=== PATIENT | female | born 1975 | race Caucasian/White ===

== ENCOUNTER 2016-08-20 19:28 | Inpatient (IN) | payer OTHER ==
[2016-08-20] MEDS ORDERED: THIAMINE HCL 100 MG, MVI, ADULT NO.1 WITH VIT K 10 ML, FOLIC ACID 5 MG in 0.9 % SODIUM ... IV SCH ×4 (20:00)
[2016-08-20] MEDS ORDERED: ONDANSETRON HCL/PF 4 MG/ 2ML VIAL IVP ONE (20:00)
[2016-08-20] MEDS ORDERED: DIAZEPAM 5 MG/ML DISP.SYRIN IVP ONE ×2 (20:00→22:03)
[2016-08-20] MEDS ORDERED: CloNIDine HCL 0.1 MG TABLET PO ONE (20:00)
[2016-08-20] MEDS ORDERED: ONDANSETRON HCL/PF 4 MG/ 2ML VIAL ONE (20:04)
[2016-08-20] MEDS ORDERED: 0.9 % SODIUM CHLORIDE 1,000 ML IV ONE (20:04)
[2016-08-20] MEDS ORDERED: MVI, ADULT NO.1 WITH VIT K 10 ML VIAL IV ONE (20:05)
[2016-08-20] MEDS ORDERED: THIAMINE HCL 100 MG/ML 2ML VIAL ONE (20:05)
[2016-08-20] MEDS ORDERED: FOLIC ACID 5 MG/1 ML ONE (20:05)
[2016-08-20 20:48] LABS: eGFR (African) > 60; eGFR (Non-African) > 60
[2016-08-20 20:54] LABS: BASOPHILS % 0.6 (0.0-1.5); EOSINOPHILS % 1.6 % (0.0-6.8); MEAN CORPUSCULAR HEMOGLOBIN 32.5 pg (28.0-34.0); MEAN CORPUSCULAR VOLUME 96.9 fl (80.0-100.0); NEUTROPHILS # 3.2 # k/uL (1.4-7.7)
[2016-08-21] MEDS ORDERED: DIAZEPAM 5 MG/ML DISP.SYRIN IVP ONE (00:37)
--- NOTE | 2016-08-21 00:52 | Diagnostic Imaging Report ---
JOSE PORTER~ [facility] [address] [facility] [address] [place], [place]. [address] ~ ~ ~ ~ Report Submission Date: August 20, 2016 9:18:26 PM CDT Patient ~ Study Name: ISH BORREGO ~ Date: August 20, 2016 8:37:16 PM CDT ~ Modality Type: CT\SR Gender: F ~ Description: CT ABD & PELVIS W/O CO : 73 ~ Institution: [facility] Physician: JOSE PORTER ~ ~ ~ ~ Computed tomography of the abdomen and pelvis without contrast History: Alcohol abuse and vomiting Findings: Transverse abdomen and pelvis sections are obtained without contrast revealing marked hepatic steatosis, normal caliber gallbladder, and normal size spleen. The pancreas, adrenals, kidneys, great vessels, and mesenteric structures are unremarkable. Bowel loops exhibit normal caliber and wall thickness including a normal appendix. Pelvic sections reveal a lobulated right uterine fundus and normal sized ovaries. Pelvic bowel loops and urinary bladder are unremarkable. Impression: 1. Marked hepatic steatosis. 2. Normal appendix. 3. Probably right uterine fundal fibroid. 4. No acute inflammatory or obstructive process. ~ Electronically signed on August 20, 2016 9:18:26 PM CDT by: Sivakumar CALVO
--- NOTE | 2016-08-21 00:55 | Diagnostic Imaging Report ---
JOSE PORTER~ [facility] [address] [address] ~ ~ ~ ~ Report Submission Date: August 20, 2016 9:19:08 PM CDT Patient ~ Study Name: ISH BORREGO ~ Date: August 20, 2016 8:44:00 PM CDT ~ Modality Type: CR Gender: F ~ Description: CHEST : 73 ~ Institution: [facility] Physician: JOSE PORTER ~ ~ ~ ~ AP chest History: Alcohol abuse and vomiting Findings: The lungs are clear. No pleural effusions are observed. Heart size and pulmonary vascularity are normal. Osseous structures are unremarkable. Impression: Normal. ~ Electronically signed on August 20, 2016 9:19:08 PM CDT by: Sivakumar CALVO
[2016-08-21] MEDS ORDERED: 0.9 % SODIUM CHLORIDE 1,000 ML IV SCH (01:00)
[2016-08-21] MEDS ORDERED: ONDANSETRON HCL/PF 4 MG/ 2ML VIAL IVP PRN (03:20)
[2016-08-21] MEDS: 0.9 % SODIUM CHLORIDE 1,000 ML IV SCH ×2 (03:28→17:15)
--- NOTE | 2016-08-21 03:45 | ED Physician Documentation ---
General Adult - HISTORIAN Historian: patient - HPI Stated Complaint: etoh withdraw Chief Complaint: General Adult Additional Information: Pt. is alcoholic, drinks 10-15 glasses of wine daily and 1 pint of vodka every other day for years Onset: days ago (1) Timing: worse Severity: moderate Modifying Factors: many year alcoholic, stopped drinking yesterday Context: was [facility] [employer] [facility] [facility] since yesterday Quality: significant tremors Location: generalized Further Comments: yes (elevated pulse and blood pressure) Last known Well Date: 08/19/16 (last drink of ETOH) Last Known Well Time: 03:30 (last drink of ETOH) - ROS CONST: denies: fever, sweating, recent illness, chills EYES/ENT: none CVS/RESP: none GI/: nausea. 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, etoh abuse) Other History: pancreatitis Surgeries/Procedures: BTL Immunizations: referred to PCP Allergies/Adverse Reactions: Allergies Allergy/AdvReac Type Severity Reaction Status Date / Time No Known Allergies Allergy Verified 08/20/16 19:44 Home Medications: Ambulatory Orders Medication Instructions Recorded Thiamine HCl [Vitamin B-1] 100 mg IJ QDAY 08/20/16 - SOCIAL HX Smoking History: cigarettes Alcohol Use: heavy Drug Use: none - FAMILY HX Family History: Yes (htn) - VITAL SIGNS Vital Signs: Vital Signs Temp Pulse Resp BP Pulse Ox 98.5 F 93 H 20 160/90 97 08/20/16 19:35 08/20/16 20:30 08/20/16 19:35 08/20/16 19:35 08/20/16 20:30 - REVIEWED ASSESSMENTS Nursing Assessment Reviewed: Yes Vitals Reviewed: Yes Progress - Results/Orders Results/Orders: cbc, cmp, ua, etoh, uds, ct abdomen/pelvis w/o contrast, ekg ordered - Progress Progress: pt. given banana bag in er, 3 doses of 5 mg valium ivp, 0.1 mg clonidine p.o., zofran 8 mg ivp in er with improved vitals and symptoms Critical Care Note - Critical Care Note Total Time (mins): 0 ED Results Lab/Radiology - Lab Results Lab Results: see labs. slight elevation of liver enzymes, otherwise unremakable - Radiology Radiology Impressions: ct abdomen shows hepatic steatosis, no ascites, cxr clear - Orders Orders: ED Orders Category Date Time Status Continuous EKG monitoring Q1H Care 08/20/16 20:18 Active Continuous Pulse Oximetry Q1H Care 08/20/16 20:18 Active Saline Lock [Remove IV/Saline Lock] 1T Care 08/20/16 19:49 Active CHEST 1 VIEW [RAD] Routine Exams 08/20/[address] ABD & PELVIS W/O CON Stat Exams 08/20/16 Ordered AMYLASE Routine Lab 08/20/16 20:30 Received CBC/PLATELET/DIFF Routine Lab 08/20/16 20:30 Received CMP Routine Lab 08/20/16 20:30 Received DRUG SCREEN URINE MEDICAL ONLY Routine Lab 08/20/16 Ordered ETHANOL MEDICAL USE ONLY Routine Lab 08/20/16 20:30 Received URINALYSIS Routine Lab 08/20/16 20:06 Ordered 0.9 % Sodium Chloride [Normal Saline] 1,000 ml Med 08/20/16 20:04 Discontinued IV .STK-MED CloNIDine HCL [Catapress] Med 08/20/16 20:00 Discontinued 0.1 mg PO NOW ONE Diazepam [Valium] Med 08/20/16 20:00 Discontinued 5 mg IVP NOW ONE Folic Acid [Folvite] Med 08/20/16 20:05 Discontinued 5 mg .ROUTE .STK-MED ONE Mvi, Adult No.1 with Vit K [M.v.i. Adult] Med 08/20/16 20:05 Discontinued 10 ml IV .STK-MED ONE Ondansetron HCl/Pf [Zofran 4 mg/2 ml] Med 08/20/16 20:04 Discontinued 8 mg .ROUTE .STK-MED ONE Ondansetron HCl/Pf [Zofran 4 mg/2 ml] Med 08/20/16 20:00 Discontinued 8 mg IVP NOW ONE Thiamine HCl Med 08/20/16 20:05 Discontinued 200 mg .ROUTE .STK-MED ONE Thiamine HCl 100 mg Med 08/20/16 20:00 Ordered Mvi, Adult No.1 with Vit K [M.v.i. Adult] 10 ml Folic Acid [Folvite] 5 mg 0.9 % Sodium Chloride [Normal Saline] 1,000 ml IV 1T EKG WITH COMPARISON Routine Ther 08/20/16 Ordered General Adult Physical Exam - PHYSICAL EXAM GENERAL APPEARANCE: moderate distress EENT: eye inspection normal, ENT inspection normal, pharynx normal, no nystagmus NECK: normal inspection, thyroid normal, supple RESPIRATORY: no resp distress, chest non-tender, breath sounds normal CVS: reg rate & rhythm, heart sounds normal, equal pulses, no murmur, no gallop , PMI nml, no JVD, tachycardia ABDOMEN: soft, no organomegaly, normal bowel sounds, non-tender. No: mass, guarding BACK: normal inspection, no CVA tenderness SKIN: warm/dry, normal color EXTREMITIES: non-tender, normal range of motion, no evidence of injury, no edema NEURO: oriented X3, CN's nml as tested, sensation nml, other (generalized tremor , anxiety) Discharge Clincal Impression: Delirium tremens Home Medications: Ambulatory Orders Thiamine HCl [Vitamin B-1] 100 mg IJ QDAY 08/20/16 Comments: Case discussed with Dr. Deshpande. Accepts admission. Condition: Stable Disposition: ADMITTED INPATIENT Decision to Admit: NO Decision Time: 01:30
[2016-08-21 03:54] VITALS: BMI 26.6
[2016-08-21] MEDS: DIAZEPAM 5 MG/ML DISP.SYRIN IVP SCH ×2 (04:15→06:41)
[2016-08-21 05:51] LABS: APPEARANCE,URINE CLOUDY (CLEAR); COLOR,URINE BROWN (YELLOW); OCCULT BLOOD,URINE 2+ (NEGATIVE)
[2016-08-21] MEDS ORDERED: CloNIDine HCL 0.1 MG TABLET PO SCH (09:00)
[2016-08-21] MEDS ORDERED: LORazepam 1 MG TABLET PO ONE ×3 (09:06→18:34)
[2016-08-21] MEDS: LORazepam 1 MG TABLET PO PRN ×3 (09:09→18:44)
[2016-08-21] MEDS ORDERED: CloNIDine HCL 0.1 MG TABLET PO ONE (13:47)
[2016-08-21 19:18] VITALS: BP 140/88
== END 2016-08-21 19:10 | disposition home or self-care (01) | DRG 392 ==
LOC: ED 19:28 → SOUTH 08-21 02:58
PROVIDERS: ADMIT Emergency Medicine; ATTEND Family Medicine
DX: R11.2 Nausea with vomiting, unspecified (principal)
CPT/HCPCS: 71010; 74176; 80053; 80320; 81002; 82150; 85025; J2405; J3360; J3411; J3490; J7030; G0480; S1016